=== PATIENT | male | born 1980 | race Caucasian/White ===

== ENCOUNTER 2024-06-22 11:24 | Emergency (ER) | payer OTHER ==
[2024-06-22 12:30] VITALS: TEMP 97.8; BMI 38.2
[2024-06-22 12:44] LABS: BASO % 0.9 % (0-2.0); EOS % 4.1 % (0-4.5); HEMATOCRIT 43.6 % (35.4-49); HEMOGLOBIN 15.4 GM/dL (11.7-16.9); LYMPH % 18.6 % (8-40); MCH 31.8 pg (25.7-33.7); MCHC 35.2 g/dl (32.0-35.9); MEAN CELL VOLUME 90.2 fl (80-96); MEAN PLT VOLUME 7.3 fl (7.5-11.1); MONO % 9.4 % (3.8-10.2); PLATELET COUNT 186 10^3/uL (134-434); RBC 4.84 M/mm3 (4.00-5.60); RDW 12.5 % (11.9-15.9)
[2024-06-22 13:13] LABS: POTASSIUM 4.5 mmol/L (3.5-5.1)
[2024-06-22 13:15] LABS: CALCIUM 9.6 mg/dL (8.5-10.1)
[2024-06-22 13:16] LABS: BLOOD UREA NITROGEN 14.3 mg/dL (7-18)
[2024-06-22 13:19] LABS: CREATININE 0.9 mg/dL (0.55-1.3)
[2024-06-22 13:21] LABS: BILIRUBIN,TOTAL 2.2 mg/dL (0.2-1); TOT PROT 7.2 g/dl (6.4-8.2)
[2024-06-22 14:53] VITALS: BP 122/82; PULSE 78; RESP 16
== END 2024-06-22 15:10 | disposition home or self-care (01) ==
LOC: JER 11:24
DX: K57.32 Diverticulitis of large intestine without perforation or abscess without bleeding (principal)
CPT/HCPCS: 36415; 74177-TC; 80053; 83690; 84484; 85025; 99285-25